=== PATIENT | male | born 1975 | race Caucasian/White ===

== ENCOUNTER 2021-03-29 09:42 | Emergency (ER) | payer SELFPAY ==
--- OUTSIDE RECORDS SUMMARY | 2021-03-29 09:45 | XMS REPORT | Continuity of Care Document ---
:[address] [facility] t Address [address] [place] [address] Care Team Providers Name Role Phone Yonathan Anderson Attending Clinician Problems This patient has no known problems. Allergies, Adverse Reactions, Alerts This patient has no known allergies or adverse reactions. Medications This patient has no known medications. Procedures This patient has no known procedures. Encounters Start End Encounter Admission Attending Care Care Encounter Source Date/Time Date/Time Type Type Clinicians Facility Department ID 2020-09-01 2020-09-01 Emergency KIRBY Erickson [id number] 10:22:00 15:33:00 Celia Guardado [id number] [place] [id number] [place] [id number] Results This patient has no known results.
[2021-03-29] MEDS ORDERED: Ringers Lactate 1,000 ML IV ONE (10:48)
[2021-03-29] MEDS ORDERED: METOCLOPRAMIDE 10 MG/2mL INJ ONE (10:48)
[2021-03-29] MEDS ORDERED: DIPHENHYDRAMINE 50 MG/ML VIAL ONE (10:48)
[2021-03-29 10:53] LABS: Absolute Lymphocytes (CBC) 1.1 K/uL (0.7-4.9); Basophils % 0.6 % (0-1.3); Hematocrit 48.3 % (39.6-49.0); Lymphocytes % 16.3 % (15.3-44.8); MPV 8.3 fL (7.6-11.3); RBC Red Blood Cell Count 5.39 M/uL (4.33-5.43)
[2021-03-29 11:02] LABS: BUN Blood Urea Nitrogen 7 mg/dL (7-18); Bicarbonate 31 mmol/L (21-32); Glucose Level 102 mg/dL (74-106); Potassium 3.9 mmol/L (3.5-5.1); Sodium Level 135 mmol/L (136-145)
--- NOTE | 2021-03-29 11:05 | RAD REPORT ---
EXAM DESCRIPTION: RAD - Chest Single View - 03/29/2021 10:47 am CLINICAL HISTORY: COUGH Chest pain. COMPARISON: Chest Single View dated 05/13/2016; CHEST SINGLE VIEW dated 10/10/2014; CHEST SINGLE VIEW dated 05/21/2011; CHEST PA AND LAT 2 VIEW dated 04/20/2011 FINDINGS: Portable technique limits examination quality. The lungs are grossly clear. The heart is normal in size. No displaced fractures. IMPRESSION: No acute intrathoracic process suspected.
--- NOTE | 2021-03-29 12:31 | ER ---
Nurse's Notes [facility] Name: César Roberson Jr Age: 45 yrs Sex: Male : 1975 Arrival Date: 03/29/2021 Time: 09:45 Bed 24 Private MD: Diagnosis: SARS-associated coronavirus as the cause of diseases classified elsewhere;Dehydration Presentation: 03/29 09:54 Chief complaint: Patient states: Fatigue, fever, cough, body aches x 7 days, also N/V/D jl7 and SOB. Coronavirus screen: Client denies travel out of the [place] in the last 14 days. cough unrelated to allergies, fatigue, fever, muscle pain, loss of taste or smell, Client presents with at least one sign or symptom that may indicate coronavirus-19. Standard/surgical mask placed on the client. Provider contacted for isolation considerations. Ebola Screen: No symptoms or risks identified at this time. Initial Sepsis Screen: Does the patient meet any 2 criteria? No. Patient's initial sepsis screen is negative. Does the patient have a suspected source of infection? No. Patient's initial sepsis screen is negative. Risk Assessment: Do you want to hurt yourself or someone else? Patient reports no desire to harm self or others. Onset of symptoms was March 22, 2021. 09:54 Method Of Arrival: Wheelchair [facility] 09:54 Acuity: MAZIN 3 jl7 Triage Assessment: 09:55 General: Appears in no apparent distress. uncomfortable, ill, Behavior is calm, jl7 cooperative. Pain: Complains of pain in all over Pain currently is 10 out of 10 on a pain scale. Neuro: Level of Consciousness is awake, alert, obeys commands, Oriented to person, place, time, situation. Cardiovascular: Patient's skin is warm and dry. Respiratory: Reports shortness of breath cough that is Airway is patent Respiratory effort is even, unlabored, Respiratory pattern is regular, symmetrical. GI: Reports diarrhea, nausea, vomiting. Derm: Skin is pink, warm \T\ dry. Historical: - Allergies: :55 No Known Allergies; jl7 - Home Meds: :55 None [Active]; jl7 - PMHx: :55 Seizures; jl7 - PSHx: : None; jl7 - Immunization history:: Client reports having NOT received the Covid vaccine. - Social history:: Smoking status: Patient denies any tobacco usage or history of. Screenin:00 Abuse screen: Denies threats or abuse. Nutritional screening: No deficits noted. ap3 Tuberculosis screening: No symptoms or risk factors identified. Fall Risk None identified. Assessment: 10:04 General: Appears uncomfortable, Behavior is calm, cooperative, appropriate for age, ap3 Reports chills for >3 days, fever for > 3 days, feeling ill for > 3 days. Pain: Complains of pain in head. Neuro: Level of Consciousness is awake, alert, obeys commands, Oriented to person, place, time, situation, Appropriate for age Moves all extremities. Gait is steady, Speech is normal. Cardiovascular: Denies chest pain. Respiratory: Airway is patent Respiratory effort is even, unlabored, Respiratory pattern is regular, symmetrical, Breath sounds are clear in left posterior upper lobe and right posterior upper lobe Breath sounds are diminished in left posterior lower lobe, right posterior middle lobe and right posterior lower lobe. GI: Reports diarrhea, nausea, vomiting. : No signs and/or symptoms were reported regarding the genitourinary system. EENT: No signs and/or symptoms were reported regarding the EENT system. Derm: No signs and/or symptoms reported regarding the dermatologic system. 12:08 Reassessment: Patient and/or family updated on plan of care and expected duration. Pain ap3 level reassessed. Patient is alert, oriented x 3, equal unlabored respirations, skin warm/dry/pink. 13:11 Reassessment: patient signed discharge papers, IV was removed. Patient is awaiting ride ap3 to go home. Vital Signs: 09:54 BP 105 / 80; Pulse 97; Resp 19; Temp 97.1; Pulse Ox 100% on R/A; Weight 95.71 kg; jl7 Height 6 ft. 1 in. (185.42 cm); Pain 10/10; 10:44 BP 114 / 92; Pulse 80; Pulse Ox 100% on R/A; ap3 12:07 BP 121 / 80; Pulse 73; Pulse Ox 100% on R/A; ap3 09:54 Body Mass Index 27.84 (95.71 kg, 185.42 cm) jl7 ED Course: 09:45 Patient arrived in ED. am2 09:54 Arm band placed on right wrist. jl7 09:55 Triage completed. jl7 09:59 Sherin Feranndez, JAYESH is Primary Nurse. ap3 10:00 Patient has correct armband on for positive identification. Bed in low position. Call ap3 light in reach. Side rails up X 1. Pulse ox on. NIBP on. Door closed. Noise minimized. 10:07 Brooks Miller PA is PHCP. jr8 10:07 Cesia De La Torre is Attending Physician. jr8 10:16 COVID swab sent to lab. ap3 10:35 Inserted saline lock: 20 gauge in right antecubital area, using aseptic technique. ap3 Blood collected. 10:44 Warm blanket given. ap3 10:47 XRAY Chest (1 view) In Process Unspecified. EDMS 13:02 No provider procedures requiring assistance completed. IV discontinued, intact, ap3 bleeding controlled, No redness/swelling at site. Pressure dressing applied. Administered Medications: 10:44 Drug: Ringers - Lactated Ringers Solution 1000 ml Route: IV; Rate: calculated rate; ap3 Site: right antecubital; 13:03 Follow up: IV Status: Completed infusion; IV Intake: 1000ml ap3 10:44 Drug: Reglan (metoCLOPramide) 10 mg Route: IVP; Site: right antecubital; ap3 13:03 Follow up: Response: No adverse reaction ap3 10:44 Drug: Benadryl (diphenhydrAMINE) 25 mg Route: IVP; Site: right antecubital; ap3 13:03 Follow up: Response: No adverse reaction ap3 Intake: 13:03 IV: 1000ml; Total: 1000ml. ap3 Outcome: 12:31 Discharge ordered by . jr8 13:02 Discharged to home ambulatory. ap3 13:02 Condition: good 13:02 Discharge instructions given to patient, Instructed on discharge instructions, follow up and referral plans. medication usage, COVID Demonstrated understanding of instructions, follow-up care, medications, Prescriptions given X 2. 13:20 Patient left the ED. ap3 Signatures: Dispatcher [employer] EDMS Brooks Miller PA PA jr8 Stef Baptiste RN RN jl7 Sherin Corrigan am2 Sherin Fernandez RN RN ap3 Corrections: (The following items were deleted from the chart) 09:54 Chief complaint: Patient states: Fatigue, fever, cough, body aches x 7 days 7 jl7 58 09:54 Acuity: MAZIN 4 jl7 jl
--- NOTE | 2021-03-29 12:31 | EDPHYS ---
Physician Documentation [facility] Name: César Roberson Jr Age: 45 yrs Sex: Male : 1975 Arrival Date: 03/29/2021 Time: 09:45 Bed 24 Private MD: ED Physician Cesia De La Torre HPI: 03/29 17:56 This 45 yrs old Male presents to ER via Wheelchair with complaints of General jr8 Weakness, Cough, loss of taste. 17:56 This is a 45-year-old male patient that presented emergency room for ongoing cough, jr8 loss of taste, nausea, vomiting, shortness of breath. Started about 1 week ago. Since then has felt increasingly fatigued.. Severity of symptoms: At their worst the symptoms were moderate in the emergency department the symptoms are unchanged. The patient has not experienced similar symptoms in the past. The patient has not recently seen a physician. Historical: - Allergies: 09:55 No Known Allergies; jl7 - Home Meds: 09:55 None [Active]; jl7 - PMHx: 09:55 Seizures; jl7 - PSHx: 09:55 None; jl7 - Immunization history:: Client reports having NOT received the Covid vaccine. - Social history:: Smoking status: Patient denies any tobacco usage or history of. ROS: 17:56 Eyes: Negative for injury, pain, redness, and discharge, ENT: Negative for injury, jr8 pain, and discharge, Neck: Negative for injury, pain, and swelling, Cardiovascular: Negative for chest pain, palpitations, and edema, Back: Negative for injury and pain, MS/Extremity: Negative for injury and deformity, Skin: Negative for injury, rash, and discoloration, Neuro: Negative for headache, weakness, numbness, tingling, and seizure. 17:56 Respiratory: Positive for cough, shortness of breath. 17:56 Abdomen/GI: Positive for nausea, vomiting, and diarrhea. Exam: 17:56 Eyes: Pupils equal round and reactive to light, extra-ocular motions intact. Lids and jr8 lashes normal. Conjunctiva and sclera are non-icteric and not injected. Cornea within normal limits. Periorbital areas with no swelling, redness, or edema. ENT: Nares patent. No nasal discharge, no septal abnormalities noted. Tympanic membranes are normal and external auditory canals are clear. Oropharynx with no redness, swelling, or masses, exudates, or evidence of obstruction, uvula midline. Mucous membranes moist. Neck: Trachea midline, no thyromegaly or masses palpated, and no cervical lymphadenopathy. Supple, full range of motion without nuchal rigidity, or vertebral point tenderness. No Meningismus. Cardiovascular: Regular rate and rhythm with a normal S1 and S2. No gallops, murmurs, or rubs. Normal PMI, no JVD. No pulse deficits. Respiratory: Lungs have equal breath sounds bilaterally, clear to auscultation and percussion. No rales, rhonchi or wheezes noted. No increased work of breathing, no retractions or nasal flaring. Abdomen/GI: Soft, non-tender, with normal bowel sounds. No distension or tympany. No guarding or rebound. No evidence of tenderness throughout. Back: No spinal tenderness. No costovertebral tenderness. Full range of motion. Skin: Warm, dry with normal turgor. Normal color with no rashes, no lesions, and no evidence of cellulitis. MS/ Extremity: Pulses equal, no cyanosis. Neurovascular intact. Full, normal range of motion. Neuro: Awake and alert, GCS 15, oriented to person, place, time, and situation. Cranial nerves II-XII grossly intact. Motor strength 5/5 in all extremities. Sensory grossly intact. Vital Signs: 09:54 BP 105 / 80; Pulse 97; Resp 19; Temp 97.1; Pulse Ox 100% on R/A; Weight 95.71 kg; jl7 Height 6 ft. 1 in. (185.42 cm); Pain 10/10; 10:44 BP 114 / 92; Pulse 80; Pulse Ox 100% on R/A; ap3 12:07 BP 121 / 80; Pulse 73; Pulse Ox 100% on R/A; ap3 09:54 Body Mass Index 27.84 (95.71 kg, 185.42 cm) 7 MDM: 10:07 Patient medically screened. jr8 12:30 Data reviewed: vital signs, nurses notes, lab test result(s), radiologic studies, plain jr8 films, and as a result, I will discharge patient. Data interpreted: Pulse oximetry: on room air is 100 %. Interpretation: normal. Counseling: I had a detailed discussion with the patient and/or guardian regarding: the historical points, exam findings, and any diagnostic results supporting the discharge/admit diagnosis, lab results, radiology results, the need for outpatient follow up, a family practitioner, to return to the emergency department if symptoms worsen or persist or if there are any questions or concerns that arise at home. Response to treatment: the patient's symptoms have mildly improved after treatment, patient is well hydrated. 03/29 10:08 Order name: COVID-19 : Document "Date of Symptom Onset" if Symptomatic. 8 03/29 10:08 Order name: XRAY Chest (1 view); Complete Time: 11:17 jr8 03/29 10:18 Order name: CBC with Diff; Complete Time: :8 03/29 10:18 Order name: Basic Metabolic Panel; Complete Time: : jr8 03/29 12:26 Order name: SARS-COV-2 RT PCR; Complete Time: 12:33 EDMS 03/29 10:18 Order name: IV; Complete Time: 10:44 jr8 Administered Medications: 10:44 Drug: Ringers - Lactated Ringers Solution 1000 ml Route: IV; Rate: calculated rate; ap3 Site: right antecubital; 13:03 Follow up: IV Status: Completed infusion; IV Intake: 1000ml ap3 10:44 Drug: Reglan (metoCLOPramide) 10 mg Route: IVP; Site: right antecubital; ap3 13:03 Follow up: Response: No adverse reaction ap3 10:44 Drug: Benadryl (diphenhydrAMINE) 25 mg Route: IVP; Site: right antecubital; ap3 13:03 Follow up: Response: No adverse reaction ap3 Disposition: 18:56 Co-signature as Attending Physician, Cesia De La Torre I agree with the assessment and plan sp3 of care. Disposition Summary: 03/29/21 12:31 Discharge Ordered Location: Home [facility] Problem: new jr8 Symptoms: have improved jr8 Condition: Stable jr8 Diagnosis - SARS-associated coronavirus as the cause of diseases classified elsewhere jr8 - Dehydration jr8 Followup: jr8 - With: Private Physician - When: 5 - 6 days - Reason: Recheck today's complaints, Continuance of care, Re-evaluation by your physician Discharge Instructions: - Discharge Summary Sheet jr8 - Dehydration, Adult jr8 - COVID-19 jr8 Forms: - Medication Reconciliation Form jr8 - Thank You Letter jr8 - Antibiotic Education jr8 - Prescription Opioid Use jr8 Prescriptions: - Zofran 4 mg Oral Tablet - take 1 tablet by ORAL route every 12 hours As needed; 20 tablet; Refills: 0, jr8 Product Selection Permitted - Guaifenesin AC 10-100 mg/5 mL Oral Liquid - take 10 milliliters by ORAL route every 4 hours As needed; 240 milliliter; jr8 Refills: 0, Product Selection Permitted Signatures: Dispatcher [employer] EDMS Brooks Miller PA PA jr8 Stef Baptiste RN RN jl7 Sherin Fernandez RN RN ap3 Cesia De La Torre sp3 Corrections: (The following items were deleted from the chart) 10:45 10:09 CORONAVIRUS ordered. EDME EDMS
[2021-03-29 13:28] VITALS: TEMP 97.1; O2SAT 100
[2021-03-29 13:30] VITALS: BP 121/80
== END 2021-03-29 13:20 | disposition home or self-care (01) ==
LOC: ER 09:42
DX: U07.1 COVID-19 (principal); E86.0 Dehydration
CPT/HCPCS: 36415; 71045; 80048; 85025; 96365; 96366; 96375; 99284; J1200; J2765; J7120; U0003